=== PATIENT | male | born 1945 | race Caucasian/White ===

== ENCOUNTER 2021-02-25 00:13 | Inpatient (IN) | payer MEDICARE, BC ==
[~2021-02-25] VITALS: Ht 180.3 cm; Wt 62.1 kg
[2021-02-25] MEDS ORDERED: LABETALOL 5MG/ML, 20ML IVPush ONE (01:00)
[2021-02-25] MEDS ORDERED: PLEASE ENTER HEIGHT AND WEIGHT MC SCH (01:00)
[2021-02-25] MEDS ORDERED: SODIUM CHLORIDE 0.9% 1,000ML IVBOLUS ONE (01:00)
--- NOTE | 2021-02-25 01:00 | NUR ---
BREAK RN: FIRST CONTACT WITH PATIENT, PATIENT WAS WAITING ON THE WALL WITH EMS FOR A ROOM. FAMILY REPORTS AT 1830 PT WAS CONFUSUED. PT KNOWS WHO HE IS, WHERE HE IS BUT DOES NOT KNOW THE DATE. PT IS HYPERTENSIVE. PT SEEN BY DR MOULTON. PER DR MOULTON NO CODE NEURO. EKG DONE. CARDIAC MOINTOR ON. NSR NOTED. CALL LIGHT IN PLACE.
[2021-02-25] MEDS ORDERED: LABETALOL 5MG/ML, 20ML ONE (01:17)
[2021-02-25 01:26] LABS: BASOPHILS % (AUTO) 1 % (0-1); EOSINOPHILS % (AUTO) 0 % (1-7); LYMPHOCYTES % (AUTO) 9 % (22-44); MEAN CORPUSCULAR HEMOGLOBIN 31.3 pg (27.5-34.5); MEAN CORPUSCULAR HGB CONC 33.5 g/dL (33.2-36.2); MEAN PLATELET VOLUME 7.5 fL (7.4-10.4); MONOCYTES % (AUTO) 5 % (2-9); NEUTROPHILS % (AUTO) 85 % (42-75); PLATELET COUNT 208 x10^3/uL (130-400); RED BLOOD COUNT 5.94 x10^6/uL (4.38-5.82); RED CELL DISTRIBUTION WIDTH 14.2 % (9.4-14.8)
--- NOTE | 2021-02-25 01:29 | NUR ---
BREAK RN: DAUGHTER REPORTS HE LIVES ALONE, BUT TONIGHT SHE STOPPED BY AT 1830 AND PT WAS CONFUSED. REPORT GIVEN TO IRIS AUGUSTIN
[2021-02-25 01:34] LABS: ALANINE AMINOTRANSFERASE 24 U/L (12-78); ALBUMIN 4.1 g/dL (3.4-5.0); ANION GAP 7 mmol/L (5-15); CALCIUM 9.3 mg/dL (8.5-10.1); CHLORIDE 101 mmol/L (98-107); CREATININE 1.12 mg/dL (0.7-1.3)
[2021-02-25 01:35] LABS: INTERNATIONAL NORMALIZED RATIO 1.16 (0.93-1.1); PROTHROMBIN TIME 12.4 Seconds (9.6-11.5)
[2021-02-25 01:38] LABS: ALKALINE PHOSPHATASE 90 U/L (45-117); BILIRUBIN,TOTAL 0.9 mg/dL (0.2-1.0); TOTAL PROTEIN 7.9 g/dL (6.4-8.2); TROPONIN I < 0.015 ng/mL (0.000-0.045)
[2021-02-25] MEDS ORDERED: LEVETIRACETAM 1,000 MG in SODIUM CHLORIDE 0.9% 100 ML IV ONE (03:00)
[2021-02-25] MEDS ORDERED: OXYcodone IR 5MG TABLET PO PRN (03:30)
[2021-02-25] MEDS ORDERED: GUAIFENESIN/DM 200-20MG, 10ML UDC PO PRN (03:30)
[2021-02-25] MEDS ORDERED: ENALAPRILAT 1.25 MG/ML, 2ML IVPush PRN ×2 (03:30→15:30)
[2021-02-25] MEDS ORDERED: CYCLOBENZAPRINE 10 MG TABLET PO PRN (03:30)
[2021-02-25] MEDS ORDERED: DOCUSATE 100 MG CAPSULE PO PRN (03:30)
[2021-02-25] MEDS ORDERED: morphine SULFATE 10 MG/ML, 1ML IVPush PRN (03:30)
[2021-02-25] MEDS ORDERED: ONDANSETRON 2MG/ML, 2ML IVPush PRN (03:30)
[2021-02-25] MEDS ORDERED: ACETAMINOPHEN 325 MG TABLET PO PRN (03:30)
[2021-02-25] MEDS ORDERED: INSULIN LISPRO 100 UNITS/ML, PEN ONE (04:44)
[2021-02-25] MEDS: INSULIN LISPRO 100 UNITS/ML, PEN SQ-INSULIN SCH ×4 (04:47→21:47)
[2021-02-25 05:12] LABS: MICROSCOPIC NOT IND
[2021-02-25 05:27] LABS: AMPHETAMINE SCREEN, URINE Negative (Negative); BARBITURATE SCREEN, URINE Negative (Negative); BENZODIAZEPINE SCREEN, URINE Negative (Negative); CANNABINOID SCREEN, URINE Negative (Negative); COCAINE SCREEN, URINE Negative (Negative); METHADONE SCREEN, URINE Negative (Negative); OPIATE SCREEN, URINE Negative (Negative)
[2021-02-25] MEDS ORDERED: INSULIN GLARGINE 100 UNITS/ML, PEN SQ-INSULIN SCH (09:00)
[2021-02-25] MEDS: FAMOTIDINE 20 MG/2 ML IVPush SCH ×2 (09:59→21:46)
[2021-02-25] MEDS ORDERED: LABETALOL 5MG/ML, 20ML IVPush PRN (14:00)
[2021-02-25] MEDS ORDERED: hydrALAzine 20 MG/ML, 1ML IV PRN (14:00)
[2021-02-25] MEDS: LEVETIRACETAM 500 MG in SODIUM CHLORIDE 0.9% 100 ML IV SCH (14:21)
[2021-02-25] MEDS: INSULIN GLARGINE 100 UNITS/ML, PEN SQ-INSULIN SCH (22:09)
[2021-02-26] MEDS: LEVETIRACETAM 500 MG in SODIUM CHLORIDE 0.9% 100 ML IV SCH ×2 (02:35→15:21)
[2021-02-26 04:16] LABS: BASOPHILS % (AUTO) 0 % (0-1); EOSINOPHILS % (AUTO) 0 % (1-7); LYMPHOCYTES % (AUTO) 11 % (22-44); MEAN CORPUSCULAR HEMOGLOBIN 31.2 pg (27.5-34.5); MEAN CORPUSCULAR HGB CONC 33.5 g/dL (33.2-36.2); MEAN PLATELET VOLUME 7.7 fL (7.4-10.4); MONOCYTES % (AUTO) 6 % (2-9); NEUTROPHILS % (AUTO) 82 % (42-75); PLATELET COUNT 190 x10^3/uL (130-400); RED BLOOD COUNT 5.77 x10^6/uL (4.38-5.82); RED CELL DISTRIBUTION WIDTH 14.1 % (9.4-14.8)
[2021-02-26 04:26] LABS: ANION GAP 13 mmol/L (5-15); CALCIUM 9.1 mg/dL (8.5-10.1); CHLORIDE 104 mmol/L (98-107); CREATININE 0.95 mg/dL (0.7-1.3)
[2021-02-26] MEDS: FAMOTIDINE 20 MG/2 ML IVPush SCH ×2 (07:50→20:25)
[2021-02-26] MEDS: INSULIN LISPRO 100 UNITS/ML, PEN SQ-INSULIN SCH ×4 (07:50→20:26)
[2021-02-26] MEDS: INSULIN GLARGINE 100 UNITS/ML, PEN SQ-INSULIN SCH ×2 (07:51→21:00)
[2021-02-26] MEDS ORDERED: MAGNESIUM SULFATE/D5W 100 ML IVPB ONE (08:30)
[2021-02-26] MEDS ORDERED: LISINOPRIL 20 MG TABLET PO SCH ×2 (09:00→21:00)
[2021-02-26] MEDS ORDERED: ZIPRASIDONE 20 MG INJ IM PRN (11:30)
[2021-02-26] MEDS ORDERED: ATOR20TA86 PO (12:27)
[2021-02-26] MEDS ORDERED: METF850T10 PO (12:27)
[2021-02-26] MEDS ORDERED: LEVO100T PO (12:27)
[2021-02-26] MEDS ORDERED: INSU100V13 SQ (12:27)
[2021-02-26] MEDS ORDERED: MECO10005 PO (12:27)
[2021-02-26] MEDS: metFORMIN 850 MG TABLET PO SCH (17:23)
[2021-02-26] MEDS: ATORVASTATIN 40 MG TABLET PO SCH (20:26)
[2021-02-27 00:54] VITALS: BP 120/73
[2021-02-27] MEDS: LEVETIRACETAM 500 MG in SODIUM CHLORIDE 0.9% 100 ML IV SCH ×2 (03:05→16:26)
[2021-02-27 05:51] LABS: BASOPHILS % (AUTO) 1 % (0-1); EOSINOPHILS % (AUTO) 1 % (1-7); LYMPHOCYTES % (AUTO) 13 % (22-44); MEAN CORPUSCULAR HEMOGLOBIN 31.3 pg (27.5-34.5); MEAN CORPUSCULAR HGB CONC 33.5 g/dL (33.2-36.2); MEAN PLATELET VOLUME 7.5 fL (7.4-10.4); MONOCYTES % (AUTO) 7 % (2-9); NEUTROPHILS % (AUTO) 79 % (42-75); PLATELET COUNT 188 x10^3/uL (130-400); RED BLOOD COUNT 5.63 x10^6/uL (4.38-5.82); RED CELL DISTRIBUTION WIDTH 14.2 % (9.4-14.8)
[2021-02-27] MEDS: LEVOTHYROXINE 100 MCG TABLET PO SCH (05:51)
[2021-02-27 08:43] VITALS: BP 133/77
[2021-02-27] MEDS: FAMOTIDINE 20 MG/2 ML IVPush SCH ×2 (10:22→20:10)
[2021-02-27] MEDS: LISINOPRIL 20 MG TABLET PO SCH (10:23)
[2021-02-27] MEDS: metFORMIN 850 MG TABLET PO SCH ×2 (10:23→18:08)
[2021-02-27] MEDS: INSULIN LISPRO 100 UNITS/ML, PEN SQ-INSULIN SCH ×4 (10:26→20:22)
[2021-02-27] MEDS: INSULIN GLARGINE 100 UNITS/ML, PEN SQ-INSULIN SCH ×2 (10:27→20:24)
[2021-02-27 12:13] VITALS: BP 133/82
[2021-02-27 20:00] VITALS: BP 167/72
[2021-02-27] MEDS: ATORVASTATIN 40 MG TABLET PO SCH (20:10)
[2021-02-28 00:58] VITALS: BP 147/70
[2021-02-28] MEDS: LEVETIRACETAM 500 MG in SODIUM CHLORIDE 0.9% 100 ML IV SCH ×2 (03:11→15:03)
[2021-02-28] MEDS: LEVOTHYROXINE 100 MCG TABLET PO SCH (06:00)
[2021-02-28 09:26] VITALS: BP 161/100
[2021-02-28] MEDS: metFORMIN 850 MG TABLET PO SCH ×2 (10:35→17:19)
[2021-02-28] MEDS: FAMOTIDINE 20 MG/2 ML IVPush SCH (10:35)
[2021-02-28] MEDS: LISINOPRIL 20 MG TABLET PO SCH (10:36)
[2021-02-28] MEDS: INSULIN LISPRO 100 UNITS/ML, PEN SQ-INSULIN SCH ×3 (10:45→16:00)
[2021-02-28] MEDS: INSULIN GLARGINE 100 UNITS/ML, PEN SQ-INSULIN SCH (10:46)
[2021-02-28] MEDS ORDERED: BISACODYL 10 MG SUPP PR PRN (14:00)
[2021-02-28] MEDS ORDERED: INSU100I13 SQ-INSULIN (14:01)
[2021-02-28] MEDS ORDERED: ATOR40TA78 PO (14:01)
[2021-02-28] MEDS ORDERED: ACET325T26 PO (14:01)
[2021-02-28] MEDS ORDERED: BISA10SU4 PR (14:01)
[2021-02-28] MEDS ORDERED: LEVE500T53 PO (14:01)
[2021-02-28] MEDS ORDERED: LISI-170 PO (14:01)
[2021-02-28] MEDS ORDERED: DOCU-131 PO (14:01)
[2021-02-28 15:13] VITALS: BP 131/78
[2021-02-28] MEDS ORDERED: FAMOTIDINE 20 MG TABLET PO SCH (21:00)
== END 2021-02-28 17:40 | DRG 64 ==
LOC: ED 03:03 → EDIP 03:31 → CCU 03:59 → 4EST 02-26 20:12 → UNDODISIN 03-01 05:04
PROVIDERS: ADMIT Internal Medicine; ATTEND Internal Medicine
DX: I61.5 Nontraumatic intracerebral hemorrhage, intraventricular (principal); G92 Toxic encephalopathy; I16.1 Hypertensive emergency; D72.829 Elevated white blood cell count, unspecified; D75.1 Secondary polycythemia; Z20.822 Contact with and (suspected) exposure to COVID-19; E11.65 Type 2 diabetes mellitus with hyperglycemia; I10 Essential (primary) hypertension; R09.02 Hypoxemia; Z79.4 Long term (current) use of insulin; Z82.49 Family history of ischemic heart disease and other diseases of the circulatory system; Z87.891 Personal history of nicotine dependence; Z72.89 Other problems related to lifestyle
CPT/HCPCS: 36415; 70450; 71045; 80048; 80053; 80307; 80320; 81003; 82668; 82962; 83036; 83735; 84100; 84145; 84484; 85025; 85610; 85730; 87081; 87635; 93005; 96361; 96374; G0378; J1953; 92523-GN; G0480; J1815; J7030; J7050